=== PATIENT | male | born 1980 | race Caucasian/White ===

== ENCOUNTER 2018-03-14 20:28 | Emergency (ER) | payer OTHER ==
[~2018-03-14] VITALS: Ht 180.3 cm; Wt 93.9 kg
[~2018-03-14 20:28] MED LIST: Naprosyn500 MG PO; Veetids 500500 MG PO
[2018-03-14] MEDS ORDERED: CITA20 PO (20:38)
[2018-03-14] MEDS ORDERED: CLIN300 PO (20:38)
== END 2018-03-14 21:07 | disposition home or self-care (01) ==
LOC: ER 20:28
DX: K02.9 Dental caries, unspecified (principal)
CPT/HCPCS: 99281

== ENCOUNTER 2021-02-26 14:45 | Emergency (ER) | payer OTHER ==
[~2021-02-26] VITALS: Ht 182.9 cm; Wt 77.1 kg
[~2021-02-26 14:45] MED LIST changes: +CITA20 PO; +CLIN300 PO; +CYCL10; +Cleocin HCl300 MG PO; +METPRE4DP PO
== END 2021-02-26 16:08 | disposition home or self-care (01) ==
LOC: ER 14:45
DX: F32.9 Major depressive disorder, single episode, unspecified (principal); Z79.899 Other long term (current) drug therapy
CPT/HCPCS: 99283

== ENCOUNTER → 2024-11-02 | Outpatient (CLI) | payer OTHER ==
[2024-11-02 13:16] LABS: Source, Urine Voided
[2024-11-02 14:18] LABS: Bacteria Few /hpf; Squamous Epithelial Cells Rare /hpf (Few); White Blood Cells, Urine 0-2 /hpf (0-5)
== END ==
LOC: LAB 10:46 → LAB SHORT 10:46
PROVIDERS: Family Medicine
DX: R31.9 Hematuria, unspecified (principal)
CPT/HCPCS: 81015